=== PATIENT | female | born 1975 | race Caucasian/White ===

== ENCOUNTER 2016-08-31 11:06 | Emergency (ER) | payer OTHER ==
[~2016-08-31] VITALS: Ht 175.3 cm; Wt 80.7 kg
--- NOTE | 2016-08-31 12:13 | ED GI/GU/ABDOMINAL COMPLAINT ---
History of Present Illness General Chief Complaint: Abdominal Pain/Flank Pain Stated Complaint: ABD PAIN Source: patient Exam Limitations: no limitations Allergies Uncoded Allergies: NKDA (08/13/15) Triage Note: PT STATES THAT SHE RAN OUT OF HER EFFEXOR 4 DAYS AGO AND THAT FOR THE PAST COUPLE OF DAYS SHE HAS HAD MID ABD PAIN N/V/D. SPOUSE STATES THAT SHE HAS BEEN SLEEPING SINCE YESTERDAY. PT FEELS SHE IS WITHDRAWING FROM HER EFFEXOR Triage Nurses Notes Reviewed? yes ? n Is pt currently ? No HPI: 41 yo F PMH Depresion presenting with N/V, abdominal pain. Nausea for the past 2-3 days, associated nonbloody nonbilious emesis, 2-3 episodes today and yesterday. Diarrhea with 3-4 loose watery bowel movements per day. Intermittent lower abdominal pain, crampy quality, unclear precipitanting/ palliating factors, not worse with movement, not worse with eating. Patient states that she thinks symptoms are secondary to stopping Effexor 5 days ago, had identical symptoms associated with stopping Effexor in the past, she spelled to obtain her Effexor for the past 6 days due to insurance issues, in the process of getting [employer] insurance to restart Effexor. Denies fevers, chills, chest pain, shortness of breath, palpitations, constipation, bloody stools, urinary symptoms, vaginal symptoms, or focal neurologic symptoms.. (OSMAR PEÑA,LETICIA) Vital Signs & Intake/Output Vital Signs & Intake/Output Vital Signs Date Time Temp Pulse Resp B/P B/P Pulse O2 O2 Flow FiO2 Mean Ox Delivery Rate 08/31 1502 97.9 69 18 140/81 100 Room Air 08/31 1257 97 Room Air 08/31 1116 97.1 100 18 133/74 96 Room Air Reconcile Medications Ondansetron (Zofran Odt) 4 MG TAB.RAPDIS 1 TAB SL TID nausea and vomiting (SANJAY PEÑA,LIAT) Past History Travel History Traveled to [place] past 21 day No Medical History Any Pertinent Medical History? 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 No (LETICIA PRASAD MD) Review of Systems Review of Systems Constitutional: Reports: malaise, weakness. EENTM: Reports: no symptoms. Respiratory: Reports: no symptoms. Cardiovascular: Reports: no symptoms. GI: Reports: abdominal pain, diarrhea, nausea, vomiting. Genitourinary: Reports: no symptoms. Musculoskeletal: Reports: no symptoms. Skin: Reports: no symptoms. Neurological/Psychological: Reports: no symptoms. Hematologic/Endocrine: Reports: no symptoms. Immunologic/Allergic: Reports: no symptoms. All Other Systems: Reviewed and Negative (LETICIA PRASAD MD) Physical Exam Physical Exam General Appearance: well developed/nourished, no apparent distress, alert, awake , anxious Head: atraumatic, normal appearance Eyes: Bilateral: normal appearance. Ears, Nose, Throat, Mouth: moist mucous membrane Neck: normal inspection, full range of motion Respiratory: normal breath sounds, no respiratory distress, lungs clear Cardiovascular: regular rate/rhythm, normal peripheral pulses Gastrointestinal: normal bowel sounds, soft Comments: Abdomen: Mild suprapubic and left lower quadrant tenderness palpation without rebound or guarding Core Measures ACS in differential dx? No Severe Sepsis Present: No Septic Shock Present: No (LETICIA PRASAD MD) Progress Differential Diagnosis: appendicitis, cholecystitis, diverticulitis, kidney stone, ovarian cyst, ovarian torsion, PUD/GERD, SBO Initial ED EKG: normal axis (LETICIA PRASAD MD) Plan of Care: Orders Procedure Date/time Status URINE 08/31 1235 Complete URINALYSIS 08/31 1235 Complete LIPASE 08/31 1235 Complete COMPREHENSIVE METABOLIC PANEL 08/31 1235 Complete CBC WITHOUT DIFFERENTIAL 08/31 1235 Complete Laboratory Tests 08/31/16 1550: Urinalysis LIGHT H, Urine Color YEL, Urine Clarity CLEAR, Urine pH 6.0, Ur Specific [place] >= 1.030, Urine Protein TRACE H, Urine Ketones 40 H, Urine Nitrite NEG, Urine Bilirubin NEG, Urine Urobilinogen 0.2, Ur Leukocyte Esterase NEG, Ur Microscopic SEDIMENT EXAMINED, Urine RBC RARE, Urine WBC 3-5 H, Ur Epithelial Cells MOD H, Urine Bacteria FEW H, Urine Mucus MOD H, Urine Hemoglobin NEG, Urine Glucose NEG, Urine Test NEGATIVE 08/31/16 1243: Anion Gap 12, Estimated GFR > 60, BUN/Creatinine Ratio 15.7, Glucose 106 H, Calcium 9.4, Total Bilirubin 0.7, AST 20, ALT 28, Alkaline Phosphatase 68, Total Protein 7.5, Albumin 4.2, Globulin 3.3, Albumin/Globulin Ratio 1.3, Lipase 49, CBC w Diff NO MAN DIFF REQ, RBC 4.69, MCV 92.7, MCH 30.9, RDW 13.4, MPV 8.6, Gran % 69.1, Lymphocytes % 24.2, Monocytes % 3.6, Eosinophils % 2.9, Basophils % 0.2, Absolute Granulocytes 4.5, Absolute Lymphocytes 1.6, Absolute Monocytes 0.2 , Absolute Eosinophils 0.2, Absolute Basophils 0, PUBS MCHC 33.3 Physician MDM: 41 yo F presenting with 3-4 days of intermittent AP, N/V/D. HR 100s, otherwise VSS, abdominal exam as above. DDx: Side effect of medication withdrawal, gastroenteritis, ovarian pathology, less likely diverticulitis or surgical abdominal pathology. CBC without leukocytosis, unremarkable. CMP unremarkable, lipase normal. U negative, urinalysis not suggestive of infection, some ketones indicating starvation ketosis. Transvaginal ultrasound with small uterine fibroids, no ovarian torsion or cysts, patient informed of results of ultrasound, will follow up with DENTAL COORDINATOR for further evaluation of fibroids. Given 1 L normal saline, Zofran, Toradol with resolution of nausea and complete resolution of abdominal pain, on reexamination abdomen benign soft and nontender palpation throughout. Possibility of diverticulitis discussed with patient, using a shared decision making strategy in light of the overall low clinical suspicion retired radiculitis and the attendant risks of radiation from the abdomen and pelvis CT scan, the patient and I decided to forego further diagnostic imaging, with the caveat that she return to the emergency department for worsening symptoms. Patient has plans to obtain insurance of the next week and restart Effexor, would be unable to fill her prescription given from the ED even if provided, will provide the patient symptomatic control with Zofran. Discharged with return precautions, plan to follow up with PMD in the next 2-3 days. Plan of care was discussed with the patient who expressed agreement and understanding. (LETICIA PRASAD MD) Departure Departure Disposition: HOME OR SELF CARE Condition: Stable Clinical Impression Primary Impression: Abdominal pain Qualifiers: Abdominal location: left lower quadrant Qualified Code: R10.32 - Left lower quadrant pain Secondary Impressions: Nausea and vomiting Qualifiers: Vomiting type: unspecified Vomiting Intractability: non-intractable Qualified Code: R11.2 - Nausea with vomiting, unspecified Referrals: KEVIN WORRELL MD (PCP/Family) Additional Instructions: Take tylenol or ibuprofen for abdominal pain. Take zofran as needed for nausea. Follow up with your primary care physician in the next 2-3 days. Return to the ED for any new, worsening, or concerning symptoms. Departure Forms: Customer Survey General Discharge Information Prescriptions: Current Visit Scripts Ondansetron (Zofran Odt) 1 TAB SL TID #15 TAB (LETICIA PRASAD MD) PA/DENTAL MOLD MAKER Co-Sign Statement Statement: ED Attending supervision documentation- [] I saw and evaluated the patient. I have also reviewed all the pertinent lab results and diagnostic results. I agree with the findings and the plan of care as documented in the PA's/DENTAL MOLD MAKER's documentation. [X] I have reviewed the ED Record and agree with the PA's/DENTAL MOLD MAKER's documentation. [] Additions or exceptions (if any) to the PAs/DENTAL MOLD MAKER's note and plan are summarized below: [] (SANJAY PEÑA,LIAT)
[2016-08-31 12:51] LABS: ABSOLUTE BASOPHIL COUNT 0 /CUMM (0.0-0.2); ABSOLUTE EOSINOPHIL COUNT 0.2 /CUMM (0.0-0.7); ABSOLUTE GRANULOCYTE CT 4.5 /CUMM (1.4-6.5); ABSOLUTE LYMPH COUNT 1.6 /CUMM (1.2-3.4); ABSOLUTE MONOCYTE COUNT 0.2 /CUMM (0.10-0.60); BASOPHIL % 0.2 % (0.0-2.0); EOSINOPHIL % 2.9 % (0-5); GRANULOCYTE % 69.1 % (42.2-75.2); HEMATOCRIT 43.5 % (37-47); MEAN CORPUSCULAR HGB 30.9 PG (27.0-31.0); MEAN CORPUSCULAR HGB CONC 33.3 G/DL (33.0-37.0); MEAN CORPUSCULAR VOLUME 92.7 FL (81.0-99.0); MEAN PLATELET VOLUME 8.6 FL (7.4-10.4); PLATELET COUNT 283 /CUMM (130-400); RBC DISTRIBUTION WIDTH 13.4 % (11.5-14.5); RED BLOOD CELL CT 4.69 /CUMM (4.20-5.40); WHITE BLOOD CELL COUNT 6.5 /CUMM (4.8-10.8)
--- NOTE | 2016-08-31 13:52 | ULTRASOUND REPORT ---
EXAMINATIONS: ULTRASOUND PELVIS. CLINICAL INFORMATION: Left lower quadrant pain, evaluate for ovarian torsion. COMPARISON: None. TECHNIQUE: Transabdominal imaging was performed. Doppler interrogation and limited spectral analysis was performed. FINDINGS: There are 2 small probable fibroids in the uterus, the largest in the fundus measuring 2 cm maximal dimension. The uterus is anteverted and otherwise of normal size and echogenicity measuring 9.6 x 5.1 x 5.8 cm. A homogeneous endometrium is identified measuring 0.5 cm. The cervical length is 3.6 cm. Both ovaries are of normal size and echogenicity. The right measures 3.0 x 1.7 x 1.5 cm for a volume of 4.0 cc. The left measures 2.7 x 1.9 x 1.7 cm for a volume of 4.4 cc. Normal waveforms are identified bilaterally. There is no free fluid in the cul-de-sac. IMPRESSION: Small probable uterine fibroids, otherwise unremarkable pelvic ultrasound.
[2016-08-31 15:02] VITALS: BP 140/81
[2016-08-31] MEDS ORDERED: ZOFRAN ODT4 M1 SL (16:19)
== END 2016-08-31 16:33 ==
LOC: ERH 11:06
PROVIDERS: Student in an Organized Health Care Education/Training Program
DX: R11.2 Nausea with vomiting, unspecified (principal); R10.30 Lower abdominal pain, unspecified
CPT/HCPCS: 81001; 81025; 96374; 96375; J1885; J2405